=== PATIENT | female | born 2000 | race Caucasian/White ===

== ENCOUNTER → 2020-01-19 11:33 | Outpatient (BNVA) | payer MEDICAID, SELFPAY | PROVIDERS: Family Provider Nurse Practitioner; PCP Nurse Practitioner; Visit Provider Nurse Practitioner | DX: Z34.90 Encounter for supervision of normal pregnancy, unspecified, unspecified trimester (principal); N91.2 Amenorrhea, unspecified | CPT/HCPCS: 84702 ==

== ENCOUNTER 2020-02-18 13:02 | Emergency (ER) | payer MEDICAID, SELFPAY | END 2020-02-18 14:36 | disposition admitted as inpatient to this hospital (09) | LOC: ER 02-21 10:05 | PROVIDERS: Emergency Provider Emergency Medicine; Family Provider Nurse Practitioner; PCP Nurse Practitioner | DX: R45.851 Suicidal ideations (principal); F17.210 Nicotine dependence, cigarettes, uncomplicated | CPT/HCPCS: 12345; 36415; 80053; 80156; 80164; 80178; 80185; 80306; 80307; 81001; 81025; 84443; 85025; 87086; 93005; 99284; 99285 ==

== ENCOUNTER 2020-02-18 13:02 | Inpatient (IN) | payer MEDICAID, SELFPAY ==
[2020-02-18 13:04] VITALS: BP 110/70; PULSE 81; RESP 17; TEMP 36.6; O2SAT 99; BMI 39.2
--- NOTE | 2020-02-18 13:05 | ECG_ITS ---
Measurements Intervals [place] Rate: 62 P: 49 OK: 153 QRS: 47 QRSD: 94 T: 17 QT: 395 QTc: 403 SINUS RHYTHM WITH MARKED SINUS ARRHYTHMIA No previous ECG available for comparison Electronically Signed On 02-18-2020 18:25:31 CDT by Devyn Gutierrez M.D. [email or web address]
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
[2020-02-18 13:30] LABS: Basophils % 0.2 %; Eosinophils # 0.3 10^3/uL (0.0-0.8); Eosinophils % 2.4 %; Hematocrit 44.6 % (37.0-47.0); Hemoglobin 14.2 g/dL (11.5-15.3); Lymphocytes # 3.1 10^3/uL (0.8-4.8); Lymphocytes % 28.3 %; Mean Corpuscular HGB Conc 31.8 g/dL (30.0-36.0); Mean Corpuscular Hemoglobin 29.6 pg (28.0-34.0); Mean Corpuscular Volume 93.1 fL (81-99); Mean Platelet Volume 10.3 fL (7.4-10.4); Monocytes # 0.5 10^3/uL (0.2-0.9); Monocytes % 4.8 %; Neutrophils # 7.1 10^3/uL (1.8-7.7); Neutrophils % 63.9 %; Nucleated Red Blood Cells % 0 %; Platelet Count 271 10^3/cmm (130-400); Red Blood Count 4.79 10^6/uL (4.1-5.3); White Blood Count 11.1 10^3/uL (4.0-10.0)
[2020-02-18 13:45] VITALS: RESP 18
[2020-02-18 13:46] LABS: Lithium 0.1 mmol/L (0.6-1.2)
[2020-02-18 13:56] LABS: HCG Qualitative Urine. Negative (Negative)
[2020-02-18 13:57] LABS: Alanine Aminotransferase 15 U/L (0-33); Albumin Level 4.1 g/dL (3.5-5.2); Alkaline Phosphatase 91 IU/L (35-105); Aspartate Amino Transferase 16 U/L (0-32); Blood Urea Nitrogen 12 mg/dL (6-20); Calcium 9.6 mg/dL (8.5-10.5); Carbon Dioxide 27 mmol/L (22-29); Chloride 109 mmol/L (98-107); Glomerular Filtration Rate 90.5 mL/min (90-130); Glucose 93 mg/dL (65-115); Osmolality Calculated 298 mOsm/kg (285-295); Phenytoin Dilantin 0.8 ug/mL (10-20); Sodium 146 mmol/L (136-145); Thyroid Stimulating Hormone 0.87 uIU/mL (0.27-4.20); Total Bilirubin 0.2 mg/dL (0.15-1.2); Total Protein 7.1 g/dL (6.6-8.7); Valproic Acid Level 2.8 mcg/mL (50-100)
[2020-02-18 13:59] LABS: Acetaminophen < 5.0 ug/mL (10-30); Alcohol Level < 10 mg/dL (0-10); Salicylate < 0.3 mg/dL (3-10)
[2020-02-18 14:10] LABS: Amphetamines Screen Urine Negative (Negative); Barbiturates Screen Urine Negative (Negative); Benzodiazepines Screen Urine Negative (Negative); Cocaine Screen Urine Negative (Negative); Opiate Screen Urine Negative (Negative); PCP Screen Urine Negative (Negative); THC Screen Urine Negative (Negative)
[2020-02-18 14:13] LABS: Urine Appearance Hazy (CLEAR); Urine Color Yellow (Yellow); pH Urine 7 (5-7)
[2020-02-18 14:19] LABS: Add Urine Microscopic? YES; Bilirubin Urine Neg (NEGATIVE); Blood Urine Neg (Negative); Glucose Urine UA Norm (Normal); Ketones Urine Negative (Negative); Leukocyte Esterase Urine 2+ (Negative); Nitrate Urine Negative (Negative); Protein Urine Neg (Negative); Urobilinogen Urine Norm (Negative)
[2020-02-18 14:21] LABS: WBC Urine 40-55 /hpf (0-5)
[2020-02-18 14:22] LABS: Add Urine Culture? Yes; Amorphous Sediment Urine 2+; Bacteria Urine 2+; Squamous Epithelial Cell Urine 55-80 (0-5)
[2020-02-18 14:29] VITALS: BP 122/64; PULSE 71; RESP 14; O2SAT 98
[2020-02-18 14:42] VITALS: BP 112/70; PULSE 95; RESP 17; TEMP 37.1; O2SAT 96
[2020-02-18 17:13] VITALS: BP 112/70; PULSE 95; RESP 20; TEMP 37.1; O2SAT 96
[2020-02-18 22:25] VITALS: BP 117/75; PULSE 93; RESP 16; TEMP 36.7; O2SAT 98
[2020-02-19 06:00] VITALS: BP 92/60; PULSE 61; RESP 16; TEMP 36.4; O2SAT 97
[2020-02-19] MEDS: ARIPiprazole 10 mg Tablet 15 MG PO (08:35)
[2020-02-19 11:39] VITALS: BP 92/60; PULSE 61; RESP 16; TEMP 36.4; O2SAT 97
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
[2020-02-19 12:01] VITALS: BP 92/60; PULSE 61; RESP 16; TEMP 36.4; O2SAT 97
--- NOTE | 2020-02-19 13:11 | PC.SOCIAL ---
Transport setup. Don from [facility] messaged SS & asked if SS can setup a ride for pt to be transported to [address] [place] [id number]. [employer] was called & ride is setup. Trip# [id number]. SS notified Don that the ride is now setup. No other needs voiced.
[2020-02-19] MEDS: gabapentin 300 mg Capsule PO (14:11)
== END 2020-02-19 15:52 | disposition home or self-care (01) | DRG 882 ==
LOC: ER 13:53 → NP 14:21
PROVIDERS: Admitting Provider Psychiatry & Neurology Psychiatry; Emergency Provider Emergency Medicine; Family Provider Nurse Practitioner; PCP Nurse Practitioner; Visit Provider Psychiatry & Neurology Psychiatry
DX: F43.24 Adjustment disorder with disturbance of conduct (principal); Z62.810 Personal history of physical and sexual abuse in childhood; Z91.5 Personal history of self-harm; F17.210 Nicotine dependence, cigarettes, uncomplicated; F41.8 Other specified anxiety disorders; F43.10 Post-traumatic stress disorder, unspecified; F60.3 Borderline personality disorder
CPT/HCPCS: 12345; 36415; 80053; 80156; 80164; 80178; 80185; 80306; 80307; 81001; 81025; 84443; 85025; 87086; 93005; 99284

== ENCOUNTER → 2020-02-22 11:41 | Outpatient (BNVA) | payer MEDICAID, SELFPAY | PROVIDERS: Family Provider Nurse Practitioner; PCP Nurse Practitioner; Visit Provider Nurse Practitioner Family | DX: G44.009 Cluster headache syndrome, unspecified, not intractable (principal); Z79.899 Other long term (current) drug therapy; F33.9 Major depressive disorder, recurrent, unspecified; E78.2 Mixed hyperlipidemia; E55.9 Vitamin D deficiency, unspecified | CPT/HCPCS: 80053; 80061; 81001; 82306; 83036; 84443; 85025 ==

== ENCOUNTER → 2020-03-02 09:50 | Outpatient (BNVA) | payer MEDICAID, SELFPAY | PROVIDERS: Family Provider Nurse Practitioner; PCP Nurse Practitioner; Visit Provider Nurse Practitioner Family | DX: Z30.42 Encounter for surveillance of injectable contraceptive (principal) | CPT/HCPCS: 81025 ==